=== PATIENT | male | born 1975 ===

== ENCOUNTER → 2021-01-01 | Day surgery (SDC) | payer OTHER | END | disposition home or self-care (01) | LOC: ADM 12-26 11:15 → AMB-ENDOS 07:17 | PROVIDERS: ATTEND Surgery | DX: D12.4 Benign neoplasm of descending colon (principal); D12.5 Benign neoplasm of sigmoid colon; D12.7 Benign neoplasm of rectosigmoid junction; Z12.11 Encounter for screening for malignant neoplasm of colon ==

== ENCOUNTER → 2021-02-12 14:22 | Outpatient (CLI) | payer OTHER | END | disposition home or self-care (01) | LOC: LAB 14:22 | PROVIDERS: ATTEND Radiology Diagnostic Radiology | DX: D12.5 Benign neoplasm of sigmoid colon (principal) ==

== ENCOUNTER 2021-02-14 10:02 | Outpatient (CLI) | payer OTHER | END 2021-02-14 10:08 | disposition home or self-care (01) | LOC: TOM 10:02 | PROVIDERS: ATTEND Internal Medicine Gastroenterology | DX: D12.5 Benign neoplasm of sigmoid colon (principal); R10.32 Left lower quadrant pain; K57.32 Diverticulitis of large intestine without perforation or abscess without bleeding ==

== ENCOUNTER 2021-09-24 10:23 | Outpatient (CLI) | payer OTHER | END 2021-09-24 10:43 | disposition home or self-care (01) | LOC: TOM 10:23 | PROVIDERS: ATTEND Internal Medicine Gastroenterology | DX: K57.32 Diverticulitis of large intestine without perforation or abscess without bleeding (principal); R10.32 Left lower quadrant pain ==

== ENCOUNTER 2023-02-23 15:28 | Inpatient (IN) | payer OTHER ==
[~2023-02-23] VITALS: Ht 188 cm; Wt 82.6 kg
[2023-02-24] MEDS ORDERED: IRBESARTAN75 MG PO (14:32)
[2023-02-28] MEDS ORDERED: HYOSCYAMINE0.125 M1 SL (10:18)
[2023-02-28] MEDS ORDERED: INTESTINEX680 M1 PO (10:19)
== END 2023-02-28 11:03 | disposition home or self-care (01) | DRG 331 ==
LOC: O/R 02-26 06:00 → SURG 02-26 10:00 → SURH 02-26 16:04
PROVIDERS: ADMIT Surgery; ATTEND Surgery
PROC: 0DBP4ZZ Excision of Rectum, Percutaneous Endoscopic Approach (ICD-10-PCS; 2023-02-26)
PROC: 0DJD8ZZ Inspection of Lower Intestinal Tract, Via Natural or Artificial Opening Endoscopic (ICD-10-PCS; 2023-02-26)
PROC: 8E0W4CZ Robotic Assisted Procedure of Trunk Region, Percutaneous Endoscopic Approach (ICD-10-PCS; 2023-02-26)
PROC: 0DTN4ZZ Resection of Sigmoid Colon, Percutaneous Endoscopic Approach (ICD-10-PCS; principal; 2023-02-26 10:00)
DX: K57.30 Diverticulosis of large intestine without perforation or abscess without bleeding (principal)